=== PATIENT | male | born 1970 | race Caucasian/White ===

== ENCOUNTER → 2017-12-09 | Outpatient (CLI) | payer BC ==
[~2017-12-09] VITALS: Ht 182.9 cm; Wt 74.8 kg
[2017-12-09] VITALS (27 sets, daily range): BP systolic 108–132; BP diastolic 55–84
[~2017-12-09] MED LIST: ALTEPLASE 10 MG in SODIUM CHLORIDE 0.9% 250 ML ITC ONE; FENTANYL CITRATE/PF 50MCG/ML 2ML VIAL IV SCH; FENTANYL CITRATE/PF 50MCG/ML 2ML VIAL ONE; HEPARIN 1000 UNITS/ML 10ML IV SCH; HEPARIN 1000 UNITS/ML 10ML ONE; HEPARIN 5000 UNITS/ML VIAL IV ONE; IOHEXOL-300 100 ML BOTTLE ONE; LIDOCAINE HCL 1% 20ML VIAL (Pyxis) INJ ONE; MIDAZOLAM HCL 2 MG/2 ML VIAL ONE; MIDAZOLAM HCL 5 MG/5 ML VIAL IV ONE; SODIUM BICARBONATE 4% (2.4MEQ) 5ML VIAL IV ONE
[2017-12-09 07:41] LABS: BASOPHILS % 0.6 % (0.0-2.0); EOSINOPHILS % 0.8 % (0.0-5.0); HEMATOCRIT. 40.3 % (42.0-52.0); HEMOGLOBIN. 13.5 g/dL (14.0-18.0); LYMPHOCYTES % 24.9 % (20.0-50.0); MEAN CORPUSCULAR VOLUME 89.4 fL (80.0-94.0); MEAN PLATELET VOLUME 9.9 fl (7.4-10.4); MONOCYTES % 8.7 % (2.0-8.0); PLATELET 234 x1000/uL (130-400); RED BLOOD CELL COUNT 4.51 mill/uL (4.7-6.1)
[2017-12-09 07:46] LABS: CHLORIDE 107 mEq/L (98-107)
[2017-12-09 07:48] LABS: INR 1.1
== END | disposition home or self-care (01) ==
LOC: EEVIPCON → RAD 06:53
PROVIDERS: ATTEND Internal Medicine Critical Care Medicine
DX: I82.622 Acute embolism and thrombosis of deep veins of left upper extremity (principal); I87.1 Compression of vein
CPT/HCPCS: 36415; 36904; 75820; 75827; 76937; 80053; 85025; 85384; 85610; 85730; 99152; 99153; C1725; C1766; C1769; C1887; C2630; J1644; J2250; J3010; J3490; J7050; Q9967; J2997; J7040

== ENCOUNTER → 2023-04-22 | Outpatient (CLI) | payer BC | END | disposition home or self-care (01) | LOC: RAD 09:50 | DX: S51.011A Laceration without foreign body of right elbow, initial encounter (principal); D17.79 Benign lipomatous neoplasm of other sites; R60.0 Localized edema; X58.XXXA Exposure to other specified factors, initial encounter; Y93.89 Activity, other specified; Y92.89 Other specified places as the place of occurrence of the external cause; Y99.8 Other external cause status | CPT/HCPCS: 73221 ==